=== PATIENT | male | born 1980 | race African-American/Black ===

== ENCOUNTER 2018-08-26 16:14 | Emergency (ER) | payer MEDICAID ==
[~2018-08-26] VITALS: Ht 182.9 cm; Wt 72.0 kg
[2018-08-26 16:23] VITALS: BP 124/71
[2018-08-26] MEDS ORDERED: DIME120C2 PO (16:26)
== END 2018-08-26 21:30 | disposition left against medical advice (07) ==
LOC: ER 16:14
DX: Z53.21 Procedure and treatment not carried out due to patient leaving prior to being seen by health care provider (principal)

== ENCOUNTER 2018-08-28 14:36 | Emergency (ER) | payer MEDICAID ==
[~2018-08-28] VITALS: Ht 182.9 cm; Wt 98.4 kg
[~2018-08-28 14:36] MED LIST: DIME120C2 PO
[2018-08-28 19:11] LABS: BASOPHILS % 0.6 % (0.0-2.0); EOSINOPHILS % 0.8 % (0.0-5.0); HEMOGLOBIN. 16.2 g/dL (14.0-18.0); LYMPHOCYTES % 31.3 % (20.0-50.0); MEAN CORPUSCULAR HEMOGLOBIN 32.2 pg (28.0-32.0); MEAN CORPUSCULAR VOLUME 93.3 fL (80.0-94.0); MEAN PLATELET VOLUME 11.1 fl (7.4-10.4); MONOCYTES % 9.1 % (2.0-8.0); NEUTROPHILS % 58.2 % (40.0-76.0); PLATELET 162 x1000/uL (130-400); RED BLOOD CELL COUNT 5.04 mill/uL (4.7-6.1); RED CELL DISTRIBUTION WIDTH 12.9 % (11.6-14.6)
[2018-08-28 19:12] LABS: CHLORIDE 103 mEq/L (98-107); PROTHROMBIN TIME 10.6 sec (9.6-11.0)
[2018-08-28] MEDS ORDERED: METHYLPREDNISOLONE SOD SUCC 125 MG/2 ML VIAL IV ONE (19:30)
[2018-08-28] MEDS ORDERED: IPRATROPIUM/ALBUTEROL 0.5-3(2.5)MG/3ML NEB INH PRN (22:15)
[2018-08-28] MEDS ORDERED: GUAIFENESIN 200MG/10ML SUGAR FREE UDC PO PRN (22:15)
[2018-08-28] MEDS ORDERED: DIPHENHYDRAMINE 50MG/ML VIAL IV PRN (22:15)
[2018-08-28] MEDS ORDERED: DOCUSATE SODIUM 100MG CAPSULE PO PRN (22:15)
[2018-08-28] MEDS ORDERED: CLONIDINE 0.1MG TABLET PO PRN (22:15)
[2018-08-28] MEDS ORDERED: LORAZEPAM 2MG/ML CPJ IV PRN (22:15)
[2018-08-28] MEDS ORDERED: MAGNESIUM/ALUMINUM HYDROXIDE/SIMETHICONE 30ML UDC PO PRN (22:15)
[2018-08-28] MEDS ORDERED: HYDRALAZINE 20MG/ML VIAL IV PRN (22:15)
[2018-08-28] MEDS ORDERED: ACETAMINOPHEN 325MG TABLET PO PRN (22:15)
[2018-08-28] MEDS ORDERED: ONDANSETRON HCL 4MG/2ML INJ IV PRN (22:15)
[2018-08-28] MEDS ORDERED: METHYLPREDNISOLONE SOD SUCC 125 MG/2 ML VIAL IV SCH (22:15)
[2018-08-28] MEDS ORDERED: HYDROMORPHONE HCL/PF 2MG/ML CPJ IV PRN (23:00)
[2018-08-28] MEDS ORDERED: HYDROCODONE/ACETAMINOPHEN 10/325MG TABLET PO PRN (23:00)
[2018-08-28 23:03] VITALS: BP 114/66
[2018-08-29] MEDS ORDERED: SODIUM CHLORIDE 0.9% INJ 3ML FLUSH IVF SCH (06:00)
[2018-08-29] MEDS ORDERED: NA PHOS,M-B/NA PHOS,DI-BA ENEMA 118ML PR PRN (09:00)
== END 2018-08-28 23:39 | disposition home or self-care (01) ==
LOC: ER 14:36 → CANRESERV 23:30 → ENRESERV 23:30 → ER 23:39 → CANBEDREQ 08-29 23:28
DX: R53.1 Weakness (principal); R26.9 Unspecified abnormalities of gait and mobility; G35 Multiple sclerosis
CPT/HCPCS: 36415; 80053; 85025; 85610; 96374; 99283; J2930

== ENCOUNTER 2020-09-09 13:46 | Emergency (ER) | payer MEDICARE, MEDICAID ==
[~2020-09-09] VITALS: Ht 182.9 cm; Wt 73.0 kg
[2020-09-09 17:09] VITALS: BP 121/76
== END 2020-09-09 15:18 | disposition home or self-care (01) ==
LOC: ER 14:07
DX: G35 Multiple sclerosis (principal)
CPT/HCPCS: 99285

== ENCOUNTER 2024-02-27 12:13 | Inpatient (IN) | payer MEDICARE, MEDICAID ==
[~2024-02-27] VITALS: Ht 182.9 cm; Wt 51.7 kg
[2024-02-27 13:17] LABS: BASOPHILS % 0.4 % (0.0-2.0); HEMOGLOBIN. 7.6 g/dL (14.0-18.0); LYMPHOCYTES % 41.3 % (20.0-50.0); MEAN CORPUSCULAR HGB CONC 31.5 g/dL (31.0-37.0); MEAN CORPUSCULAR VOLUME 82.3 fL (80.0-94.0); MEAN PLATELET VOLUME 7.7 fl (7.4-10.4); MONOCYTES % 7.6 % (2.0-8.0); NEUTROPHILS % 47.7 % (40.0-76.0); PLATELET 398 x1000/uL (130-400); RED BLOOD CELL COUNT 2.92 mill/uL (4.7-6.1); RED CELL DISTRIBUTION WIDTH 17.4 % (11.6-14.6); WHITE BLOOD COUNT 4.2 x1000/uL (4.5-11.0)
[2024-02-27] MEDS: SODIUM CHLORIDE 0.9% 1,000 ML IV ONE (13:22)
[2024-02-27 13:28] LABS: CARBON DIOXIDE 29 mEq/L (21-32); CHLORIDE 106 mEq/L (98-107); POTASSIUM 3.5 mEq/L (3.5-5.1); SODIUM 138 mEq/L (136-145)
[2024-02-27 13:29] LABS: CALCIUM 8.8 mg/dL (8.7-10.4)
[2024-02-27 13:33] LABS: CREATININE 0.3 mg/dL (0.6-1.3); GLUCOSE 77 mg/dL (70-105)
[2024-02-27 13:34] LABS: UREA NITROGEN BLOOD 8 mg/dL (9-23)
[2024-02-27 13:35] LABS: ALANINE AMINOTRANSFERASE < 7 IU/L (10-49); ALBUMIN 3.2 g/dL (3.2-4.8); ASPARTATE AMINOTRANSFERASE 10 IU/L (<34)
[2024-02-27 13:36] LABS: BILIRUBIN TOTAL 0.3 mg/dL (0.1-1.0); PHOSPHORUS 3.1 mg/dL (2.5-4.9); PROTEIN TOTAL 6.5 g/dL (6.0-8.3)
[2024-02-27 13:40] LABS: BILIRUBIN DIRECT < 0.1 mg/dL (<=3.0)
[2024-02-27] MEDS ORDERED: MAGNESIUM/ALUMINUM HYDROXIDE/SIMETHICONE 30ML UDC PO PRN (14:30)
[2024-02-27] MEDS: MULTIVITAMINS,THER W-MINERALS TABLET PO SCH (14:30)
[2024-02-27] MEDS ORDERED: GUAIFENESIN 200MG/10ML SUGAR FREE UDC PO PRN (14:30)
[2024-02-27] MEDS: PANTOPRAZOLE SODIUM 40 MG/VIAL IV SCH (14:30)
[2024-02-27] MEDS ORDERED: CLONIDINE 0.1MG TABLET PO PRN (14:30)
[2024-02-27] MEDS ORDERED: DEXT 5%/LACTATED RINGERS 1,000 ML IV ONE (14:30)
[2024-02-27] MEDS ORDERED: ONDANSETRON HCL 4MG/2ML INJ IV PRN (14:30)
[2024-02-27] MEDS ORDERED: ACETAMINOPHEN 325MG TABLET PO PRN ×2 (14:30)
[2024-02-27] MEDS ORDERED: DOCUSATE SODIUM 100MG CAPSULE PO PRN (14:30)
[2024-02-27] MEDS ORDERED: IPRATROPIUM/ALBUTEROL 0.5-3(2.5)MG/3ML NEB HHN PRN (14:30)
[2024-02-27] MEDS: ENOXAPARIN 40MG/0.4ML SYR SUBCUT SCH (15:00)
[2024-02-27 15:12] LABS: CLARITY URINE CLEAR (CLEAR); COLOR URINE YELLOW (YELLOW); GLUCOSE URINE NEGATIVE (NEGATIVE); KETONES URINE NEGATIVE (NEGATIVE); LEUKOCYTE ESTERASE URINE TRACE (NEGATIVE); NITRITE URINE POSITIVE (NEGATIVE); OCCULT BLOOD URINE NEGATIVE (NEGATIVE); PH URINE 7.5 (4.5-8.0); PROTEIN URINE NEGATIVE (NEGATIVE); SPECIFIC GRAVITY URINE 1.006 (1.005-1.030); UROBILINOGEN URINE 0.2 E.U./dL (0.2-1.0)
[2024-02-27 15:27] LABS: SQUAMOUS EPITHELIAL CELL URINE RARE /lpf (RARE/1+)
[2024-02-27 15:28] LABS: BACTERIA URINE 3+; RBC URINE 0-2 /hpf (0-2); WBC URINE 0-2 /hpf (0-2)
[2024-02-27 15:29] LABS: MUCUS URINE 2+ /lpf (NONE/TRACE)
[2024-02-27 15:40] LABS: *AMPHETAMINES SCREEN URINE NEGATIVE (NEGATIVE); *BARBITURATES SCREEN URINE NEGATIVE (NEGATIVE); *BENZODIAZEPINES SCREEN URINE NEGATIVE (NEGATIVE); *COCAINE SCREEN URINE NEGATIVE (NEGATIVE); CANNABINOID URINE SCREEN NEGATIVE (NEGATIVE); ECSTASY MDMA SCREEN URINE NEGATIVE (NEGATIVE); METHADONE URINE SCREEN NEGATIVE (NEGATIVE); OPIATES URINE SCREEN NEGATIVE (NEGATIVE); PHENCYCLIDINE URINE SCREEN NEGATIVE (NEGATIVE)
[2024-02-27 16:27] LABS: IRON 27 ug/dL (65-175)
[2024-02-27 16:30] LABS: TOTAL IRON BINDING CAPACITY 336 ug/dl (250-425)
[2024-02-27 16:34] LABS: FERRITIN 140 ng/mL (22-322); FOLIC ACID (FOLATE) SERUM 13.58 ng/mL (>5.38)
[2024-02-27 16:35] LABS: VITAMIN B12 SERUM 382 pg/mL (211-911)
[2024-02-27 18:50] VITALS: BP 96/55; PULSE 71; RESP 18; TEMP 36.0288
[2024-02-27 20:00] VITALS: BP 120/71; PULSE 73; RESP 18; TEMP 36.114; O2SAT 97
[2024-02-27] MEDS: THIAMINE HCL 100MG TABLET PO SCH (20:49)
[2024-02-27] MEDS: FERROUS SULFATE 325MG TABLET PO SCH (20:49)
[2024-02-27] MEDS: ZINC SULFATE 220 MG ( 50 ) CAPSULE PO SCH (20:49)
[2024-02-27] MEDS: ASCORBIC ACID 250 MG TABLET PO SCH (20:49)
[2024-02-28] VITALS: BP 98/63; PULSE 96; RESP 18; TEMP 36.44736; O2SAT 100
[2024-02-28 00:46] LABS: CREATINE KINASE 57 IU/L (46-171)
[2024-02-28 00:49] LABS: TROPONIN I HIGH SENSITIVITY < 4 ng/L (3.0-53)
[2024-02-28 04:00] VITALS: BP 98/61; PULSE 99; RESP 18; TEMP 36.3918; O2SAT 99
[2024-02-28 07:33] LABS: CHLORIDE 106 mEq/L (98-107); SODIUM 140 mEq/L (136-145)
[2024-02-28 07:34] LABS: CALCIUM 8.4 mg/dL (8.7-10.4); CARBON DIOXIDE 29 mEq/L (21-32)
[2024-02-28 07:35] LABS: CREATINE KINASE 50 IU/L (46-171)
[2024-02-28 07:36] LABS: TRIGLYCERIDE 30 mg/dL (0-150); TROPONIN I HIGH SENSITIVITY < 4 ng/L (3.0-53)
[2024-02-28 07:39] LABS: GLUCOSE 92 mg/dL (70-105)
[2024-02-28 07:40] LABS: ALBUMIN 3.1 g/dL (3.2-4.8); LDL CHOLESTEROL 44 mg/dL (5-100); T4 FREE 1.18 ng/dL (0.89-1.76); THYROID STIMULATING HORMONE 2.49 uIU/mL (0.55-4.78); UREA NITROGEN BLOOD 18 mg/dL (9-23)
[2024-02-28 07:41] LABS: ALANINE AMINOTRANSFERASE < 7 IU/L (10-49); ASPARTATE AMINOTRANSFERASE 9 IU/L (<34); CHOLESTEROL 91 mg/dL (<200); HDL CHOLESTEROL 40 mg/dL (>55)
[2024-02-28 07:42] LABS: BILIRUBIN TOTAL 0.2 mg/dL (0.1-1.0); PROTEIN TOTAL 6.5 g/dL (6.0-8.3)
[2024-02-28 07:51] LABS: BILIRUBIN DIRECT < 0.1 mg/dL (<=3.0); CREATININE 0.5 mg/dL (0.6-1.3)
[2024-02-28 08:00] VITALS: BP 126/81; PULSE 87; RESP 18; TEMP 36.44736; O2SAT 95
[2024-02-28 08:07] LABS: BASOPHILS % 0.5 % (0.0-2.0); EOSINOPHILS % 3.3 % (0.0-5.0); HEMATOCRIT. 26.7 % (42.0-52.0); HEMOGLOBIN. 8.2 g/dL (14.0-18.0); LYMPHOCYTES % 35.1 % (20.0-50.0); MEAN CORPUSCULAR HEMOGLOBIN 25.8 pg (28.0-32.0); MEAN CORPUSCULAR HGB CONC 30.8 g/dL (31.0-37.0); MEAN CORPUSCULAR VOLUME 83.9 fL (80.0-94.0); MEAN PLATELET VOLUME 8.6 fl (7.4-10.4); NEUTROPHILS % 49.1 % (40.0-76.0); PLATELET 425 x1000/uL (130-400); RED BLOOD CELL COUNT 3.19 mill/uL (4.7-6.1); RED CELL DISTRIBUTION WIDTH 17.3 % (11.6-14.6); WHITE BLOOD COUNT 4.4 x1000/uL (4.5-11.0)
[2024-02-28] MEDS: FOLIC ACID 1MG TABLET PO SCH (08:29)
[2024-02-28 12:00] VITALS: BP 91/56; PULSE 91; RESP 18; TEMP 36.28068; O2SAT 96
[2024-02-28 16:00] VITALS: BP 94/58; PULSE 86; RESP 16; TEMP 36.44736; O2SAT 96
[2024-02-28 20:00] VITALS: BP 87/54; PULSE 91; RESP 18; TEMP 36.50292; O2SAT 99
[2024-02-29] VITALS: BP 85/55; PULSE 65; RESP 18; TEMP 36.22512; O2SAT 100
[2024-02-29 04:00] VITALS: BP 101/57; PULSE 85; RESP 18; TEMP 36.22512
[2024-02-29 07:48] LABS: ALBUMIN 3.4 g/dL (3.2-4.8)
[2024-02-29 07:52] LABS: PREALBUMIN < 5.0 mg/dl (10.0-40.0)
[2024-02-29 08:00] VITALS: BP 100/65; PULSE 79; RESP 20; TEMP 36.114; O2SAT 98
[2024-02-29] MEDS: ENOXAPARIN 30MG/0.3ML SYR SUBCUT SCH (08:34)
[2024-02-29 12:00] VITALS: BP 97/53; PULSE 85; RESP 20; TEMP 36.16956; O2SAT 98
[2024-02-29] MEDS: SERTRALINE HCL 25MG TABLET PO SCH (14:19)
[2024-02-29 16:00] VITALS: BP 90/55; PULSE 81; RESP 19; TEMP 36.16956; O2SAT 97
[2024-02-29 20:00] VITALS: BP 99/56; PULSE 100; RESP 19; TEMP 36.83628; O2SAT 95
[2024-03-01] VITALS: BP 102/62; PULSE 88; RESP 17; TEMP 36.78072; O2SAT 98
[2024-03-01 04:00] VITALS: BP 104/62; PULSE 89; RESP 19; TEMP 36.50292; O2SAT 100
[2024-03-01 06:15] LABS: HEMOGLOBIN 7.7 g/dL (14.0-18.0); MEAN CORPUSCULAR HEMOGLOBIN 25.3 pg (28.0-32.0); MEAN CORPUSCULAR HGB CONC 30.7 g/dL (31.0-37.0); MEAN CORPUSCULAR VOLUME 82.4 fL (80.0-94.0); PLATELET 394 x1000/uL (130-400); RED BLOOD CELL COUNT 3.04 mill/uL (4.7-6.1); RED CELL DISTRIBUTION WIDTH 17.5 % (11.6-14.6); WHITE BLOOD COUNT 5.6 x1000/uL (4.5-11.0)
[2024-03-01 06:18] LABS: CHLORIDE 103 mEq/L (98-107); POTASSIUM 3.9 mEq/L (3.5-5.1); SODIUM 138 mEq/L (136-145)
[2024-03-01 06:19] LABS: CALCIUM 8.7 mg/dL (8.7-10.4); CARBON DIOXIDE 33 mEq/L (21-32)
[2024-03-01 06:24] LABS: CREATININE 0.4 mg/dL (0.6-1.3); GLUCOSE 108 mg/dL (70-105); UREA NITROGEN BLOOD 15 mg/dL (9-23)
[2024-03-01 08:01] VITALS: BP 96/61; PULSE 88; RESP 18; TEMP 36.22512; O2SAT 100
[2024-03-01 11:46] VITALS: BP 102/57; PULSE 85; RESP 16; TEMP 36.78072; O2SAT 100
[2024-03-01 16:00] VITALS: BP 90/56; PULSE 89; RESP 16; TEMP 36.114; O2SAT 100
[2024-03-01 20:00] VITALS: BP 95/64; PULSE 95; RESP 17; TEMP 36.72516; O2SAT 100
[2024-03-02] VITALS (7 sets, daily range): BP systolic 87–101; BP diastolic 50–66; PULSE 78–94; RESP 16–20; TEMP 36.05844–36.83628; O2SAT 99–100
[2024-03-02] MEDS ORDERED: FERR-63 PO (18:38)
[2024-03-02] MEDS ORDERED: TOPUD PO (18:38)
[2024-03-02] MEDS ORDERED: SERT25TA74 PO (18:38)
[2024-03-02] MEDS ORDERED: MULT-622 PO (18:38)
[2024-03-02] MEDS ORDERED: DIME1CAP PO (18:38)
[2024-03-02] MEDS ORDERED: ASCO-494 PO (18:38)
[2024-03-02] MEDS ORDERED: ZINC1CAP2 PO (18:38)
[2024-03-03] VITALS: BP 96/66; PULSE 82; RESP 18; TEMP 37.05852; O2SAT 98
[2024-03-03 04:00] VITALS: BP 99/66; PULSE 79; RESP 20; TEMP 36.6696; O2SAT 98
[2024-03-03 06:58] LABS: CARBON DIOXIDE 33 mEq/L (21-32); CHLORIDE 101 mEq/L (98-107); POTASSIUM 3.7 mEq/L (3.5-5.1); SODIUM 137 mEq/L (136-145)
[2024-03-03 07:00] LABS: CALCIUM 8.8 mg/dL (8.7-10.4)
[2024-03-03 07:03] LABS: CREATININE 0.3 mg/dL (0.6-1.3)
[2024-03-03 07:04] LABS: GLUCOSE 91 mg/dL (70-105); UREA NITROGEN BLOOD 10 mg/dL (9-23)
[2024-03-03 07:35] LABS: BASOPHILS % 0.6 % (0.0-2.0); EOSINOPHILS % 4.5 % (0.0-5.0); HEMATOCRIT. 25.4 % (42.0-52.0); HEMOGLOBIN. 7.9 g/dL (14.0-18.0); LYMPHOCYTES % 32.7 % (20.0-50.0); MEAN CORPUSCULAR HGB CONC 31.3 g/dL (31.0-37.0); MEAN CORPUSCULAR VOLUME 82.9 fL (80.0-94.0); MEAN PLATELET VOLUME 8.5 fl (7.4-10.4); MONOCYTES % 12.3 % (2.0-8.0); NEUTROPHILS % 49.9 % (40.0-76.0); PLATELET 397 x1000/uL (130-400); RED BLOOD CELL COUNT 3.06 mill/uL (4.7-6.1); RED CELL DISTRIBUTION WIDTH 17.5 % (11.6-14.6); WHITE BLOOD COUNT 4.8 x1000/uL (4.5-11.0)
[2024-03-03 08:00] VITALS: BP 110/62; PULSE 86; RESP 19; TEMP 36.22512; O2SAT 97
[2024-03-03 12:00] VITALS: BP 103/72; PULSE 84; RESP 20; TEMP 36.16956; O2SAT 97
[2024-03-03 14:26] LABS: CREATINE KINASE 81 IU/L (46-171)
[2024-03-03 16:00] VITALS: BP 100/55; PULSE 18; PULSE 99; RESP 18; RESP 20; TEMP 36.114; O2SAT 99
[2024-03-03] MEDS ORDERED: VANCOMYCIN 1.25GM PMX (XELLIA) 250 ML IV NR (16:00)
[2024-03-03] MEDS: METHYLPREDNISOLONE SOD SUCC 125MG/2ML (ACT-O-VIAL) IV SCH (18:38)
[2024-03-03] MEDS: CEFTRIAXONE 2GM/50ML 50 ML IV SCH (18:39)
[2024-03-03 20:00] VITALS: BP 99/60; PULSE 101; RESP 19; TEMP 37.7808; O2SAT 100
[2024-03-03] MEDS ORDERED: AZATHIOPRINE 50MG TABLET PO SCH (20:00)
[2024-03-03] MEDS: TRIAMCINOLONE ACETONIDE 0.1% CREAM 15GM TOP SCH (21:16)
[2024-03-03] MEDS: AZATHIOPRINE 50MG TABLET PO SCH (21:16)
[2024-03-03] MEDS ORDERED: BUPROPION HCL 75MG TABLET PO SCH (22:15)
[2024-03-03 22:53] LABS: CREATINE KINASE 71 IU/L (46-171)
[2024-03-03] MEDS: VANCOMYCIN 750MG PMX (XELLIA) 150 ML IV SCH (23:30)
[2024-03-04] VITALS: BP 100/58; PULSE 94; RESP 19; TEMP 36.72516; O2SAT 98
[2024-03-04 04:00] VITALS: BP 95/64; PULSE 90; RESP 19; TEMP 37.28076; O2SAT 98
[2024-03-04] MEDS: BACLOFEN 10MG TABLET PO SCH ×2 (05:11→14:00)
[2024-03-04] MEDS ORDERED: LIDOCAINE HCL 1% 10 MG/ML 10ML VIAL ONE (07:22)
[2024-03-04 08:56] LABS: LACTATE DEHYDROGENASE 107 IU/L (120-246)
[2024-03-04 08:57] LABS: BILIRUBIN TOTAL 0.2 mg/dL (0.1-1.0)
[2024-03-04 08:59] LABS: BILIRUBIN DIRECT < 0.1 mg/dL (<=3.0)
[2024-03-04] MEDS: VANCOMYCIN 1GM PMX (XELLIA) 200 ML IV SCH (10:14)
[2024-03-04] MEDS: SERTRALINE HCL 25MG TABLET PO SCH (10:15)
[2024-03-04 12:00] VITALS: BP 112/67; PULSE 92; RESP 20; TEMP 36.6696; O2SAT 100
[2024-03-04] MEDS ORDERED: DEXTROSE 50% WATER 50ML SYRINGE IV PRN (15:00)
[2024-03-04 16:14] VITALS: BP 102/52; PULSE 90; RESP 18; TEMP 36.05844; O2SAT 100
[2024-03-04] MEDS: BLOOD SUGAR DIAGNOSTIC STRIP TEST SCH (17:20)
[2024-03-04] MEDS: INSULIN LISPRO 100 UNITS/ML SUBCUT SCH (17:50)
[2024-03-04 20:00] VITALS: BP 93/53; PULSE 78; RESP 16; TEMP 36.6696; O2SAT 98
[2024-03-04 20:30] VITALS: BP 96/55
[2024-03-05] VITALS: BP 95/59; PULSE 78; RESP 16; TEMP 36.6696; O2SAT 97
[2024-03-05 04:00] VITALS: BP 98/55; PULSE 65; RESP 16; TEMP 36.78072; O2SAT 98
[2024-03-05 08:00] VITALS: BP 94/44; PULSE 67; RESP 19; TEMP 36.3918; O2SAT 100
[2024-03-05 09:11] LABS: IMMUNOGLOBULIN A 686 mg/dL (90-386); IMMUNOGLOBULIN G 1387 mg/dL (603-1613); IMMUNOGLOBULIN M 72 mg/dL (20-172)
[2024-03-05 11:16] LABS: HEMATOCRIT 25.7 % (42.0-52.0); HEMOGLOBIN 8.1 g/dL (14.0-18.0)
[2024-03-05 11:21] LABS: CHLORIDE 105 mEq/L (98-107); POTASSIUM 3.4 mEq/L (3.5-5.1); SODIUM 140 mEq/L (136-145)
[2024-03-05 11:22] LABS: CALCIUM 8.9 mg/dL (8.7-10.4); CARBON DIOXIDE 30 mEq/L (21-32)
[2024-03-05 11:27] LABS: GLUCOSE 236 mg/dL (70-105); UREA NITROGEN BLOOD 16 mg/dL (9-23)
[2024-03-05 11:50] LABS: CREATININE 0.5 mg/dL (0.6-1.3)
[2024-03-05 12:00] VITALS: BP 93/52; PULSE 68; RESP 19; TEMP 36.72516; O2SAT 93
[2024-03-05 16:00] VITALS: BP 95/55; PULSE 80; RESP 19; TEMP 36.72516; O2SAT 95
[2024-03-05] MEDS: FOLIC ACID 1MG TABLET PO SCH (16:59)
[2024-03-05 20:00] VITALS: BP 99/49; PULSE 88; RESP 19; TEMP 37.503; O2SAT 97
[2024-03-05] MEDS: VANCOMYCIN 750MG PMX (XELLIA) 150 ML IV SCH (21:17)
[2024-03-05] MEDS: BACLOFEN 10MG TABLET PO SCH (21:18)
[2024-03-06] VITALS: BP 93/53; PULSE 77; RESP 18; TEMP 36.83628; O2SAT 100
[2024-03-06 04:00] VITALS: BP 91/43; PULSE 74; RESP 14; TEMP 37.00296; O2SAT 100
[2024-03-06 08:02] LABS: CARBON DIOXIDE 33 mEq/L (21-32); CHLORIDE 104 mEq/L (98-107); POTASSIUM 3.8 mEq/L (3.5-5.1); SODIUM 140 mEq/L (136-145)
[2024-03-06 08:03] LABS: CALCIUM 8.8 mg/dL (8.7-10.4)
[2024-03-06 08:08] LABS: CREATININE 0.4 mg/dL (0.6-1.3); GLUCOSE 117 mg/dL (70-105); UREA NITROGEN BLOOD 17 mg/dL (9-23)
[2024-03-06 08:13] LABS: HEMATOCRIT 25.5 % (42.0-52.0); HEMOGLOBIN 7.7 g/dL (14.0-18.0); MEAN CORPUSCULAR HEMOGLOBIN 25.5 pg (28.0-32.0); MEAN CORPUSCULAR HGB CONC 30.2 g/dL (31.0-37.0); MEAN CORPUSCULAR VOLUME 84.2 fL (80.0-94.0); PLATELET 375 x1000/uL (130-400); RED BLOOD CELL COUNT 3.03 mill/uL (4.7-6.1); RED CELL DISTRIBUTION WIDTH 17.8 % (11.6-14.6); WHITE BLOOD COUNT 8.4 x1000/uL (4.5-11.0)
[2024-03-06 09:06] LABS: ALDOLASE 3.4 U/L (3.3-10.3)
[2024-03-06] MEDS: MIDODRINE HCL 5MG TABLET PO SCH (09:52)
[2024-03-06] MEDS: METHOTREXATE SODIUM 2 . 5MG TABLET PO SCH ×3 (10:07→16:22)
[2024-03-06 12:00] VITALS: BP 93/50; PULSE 95; RESP 16; TEMP 36.44736; O2SAT 100
[2024-03-06 16:00] VITALS: BP 90/52; PULSE 72; RESP 18; TEMP 36.78072; O2SAT 100
[2024-03-06 17:10] LABS: ANTI-MYELOPEROXIDASE AB < 0.2 units (0.0-0.9); ANTI-PROTEINASE 3 ABS < 0.2 units (0.0-0.9)
[2024-03-06 20:00] VITALS: BP 94/60; PULSE 69; RESP 20; TEMP 36.33624; O2SAT 98
[2024-03-07] VITALS (8 sets, daily range): BP systolic 83–96; BP diastolic 42–58; PULSE 63–85; RESP 18–20; TEMP 36.114–36.89184; O2SAT 97–99
[2024-03-07] MEDS ORDERED: AZATHIOPRINE 50MG TABLET PO SCH (09:00)
[2024-03-07 13:07] LABS: ATYPICAL P-ANCA <1:20 titer (Neg:<1:20); CYTOPLASMIC C-ANCA <1:20 titer (Neg:<1:20); PERINUCLEAR P-ANCA <1:20 titer (Neg:<1:20)
[2024-03-07 17:06] LABS: ANA IFA Negative (.)
[2024-03-07] MEDS: VANCOMYCIN 1GM PMX (XELLIA) 200 ML IV SCH (21:00)
== END 2024-03-07 21:21 | DRG 579 ==
LOC: ER 12:13 → 6WST 13:27
PROVIDERS: ADMIT Internal Medicine; ATTEND Internal Medicine
PROC: 0KBP0ZZ Excision of Left Hip Muscle, Open Approach (ICD-10-PCS; principal; 2024-02-29)
PROC: 0QBM0ZZ Excision of Left Tarsal, Open Approach (ICD-10-PCS; 2024-02-29)
PROC: 0KBN0ZZ Excision of Right Hip Muscle, Open Approach (ICD-10-PCS; 2024-02-29)
PROC: 0KBN0ZZ Excision of Right Hip Muscle, Open Approach (ICD-10-PCS; 2024-02-29)
PROC: 0KBP0ZZ Excision of Left Hip Muscle, Open Approach (ICD-10-PCS; 2024-02-29)
PROC: 0KBT0ZZ Excision of Left Lower Leg Muscle, Open Approach (ICD-10-PCS; 2024-02-29)
PROC: 02HV33Z Insertion of Infusion Device into Superior Vena Cava, Percutaneous Approach (ICD-10-PCS; 2024-03-04)
PROC: B548ZZA Ultrasonography of Superior Vena Cava, Guidance (ICD-10-PCS; 2024-03-04)
DX: L89.314 Pressure ulcer of right buttock, stage 4 (principal); G82.50 Quadriplegia, unspecified; M86.8X7 Other osteomyelitis, ankle and foot; E46 Unspecified protein-calorie malnutrition; F02.84 Dementia in other diseases classified elsewhere, unspecified severity, with anxiety; G99.2 Myelopathy in diseases classified elsewhere; F02.83 Dementia in other diseases classified elsewhere, unspecified severity, with mood disturbance; Z68.1 Body mass index [BMI] 19.9 or less, adult; R62.7 Adult failure to thrive; L89.623 Pressure ulcer of left heel, stage 3; L89.154 Pressure ulcer of sacral region, stage 4; L89.324 Pressure ulcer of left buttock, stage 4; L89.894 Pressure ulcer of other site, stage 4; M62.461 Contracture of muscle, right lower leg; L98.0 Pyogenic granuloma; F32.9 Major depressive disorder, single episode, unspecified; G30.9 Alzheimer's disease, unspecified; G35 Multiple sclerosis; K59.00 Constipation, unspecified; L60.0 Ingrowing nail; D64.9 Anemia, unspecified; M62.462 Contracture of muscle, left lower leg; N31.9 Neuromuscular dysfunction of bladder, unspecified; Z74.01 Bed confinement status; Z87.440 Personal history of urinary (tract) infections; M48.02 Spinal stenosis, cervical region; B95.62 Methicillin resistant Staphylococcus aureus infection as the cause of diseases classified elsewhere; G31.9 Degenerative disease of nervous system, unspecified; L30.9 Dermatitis, unspecified; M50.30 Other cervical disc degeneration, unspecified cervical region; Z79.899 Other long term (current) drug therapy; Z82.0 Family history of epilepsy and other diseases of the nervous system; Z88.1 Allergy status to other antibiotic agents
CPT/HCPCS: 36415; 36573; 70551; 72141; 72146; 72148; 73620; 80048; 80061; 80076; 80202; 80305; 81003; 82040; 82085; 82247; 82248; 82550; 82607; 82728; 82746; 82784; 82962; 83036; 83520; 83540; 83550; 83615; 83735; 84100; 84134; 84145; 84439; 84443; 84484; 85014; 85018; 85025; 85027; 85044; 85651; 86235; 86256; 86332; 86334; 86880; 87070; 93970; 97163; 97166; 97530; 99285; C1725; J0696; J1650; J1815; J2470; J2919; J3370; J3490; J7030; J7500; J8610

== ENCOUNTER 2024-06-14 15:16 | Inpatient (IN) | payer MEDICARE, MEDICAID ==
[~2024-06-14] VITALS: Ht 177.8 cm; Wt 65.8 kg
[~2024-06-14 15:16] MED LIST changes: +ASCO-494 PO; -DIME120C2 PO; +DIME1CAP PO; +FERR-63 PO; +MULT-622 PO; +SERT25TA74 PO; +TOPUD PO; +ZINC1CAP2 PO
[2024-06-14 15:22] VITALS: O2SAT 96
[2024-06-14] MEDS: ACETAMINOPHEN 325MG TABLET PO NR (17:46)
[2024-06-14] MEDS: SODIUM CHLORIDE 0.9% 1,000 ML IV ONE (17:52)
[2024-06-14 17:59] LABS: HEMATOCRIT. 35.8 % (42.0-52.0); HEMOGLOBIN. 11.4 g/dL (14.0-18.0); MEAN CORPUSCULAR HEMOGLOBIN 28.8 pg (28.0-32.0); MEAN CORPUSCULAR HGB CONC 31.7 g/dL (31.0-37.0); MEAN CORPUSCULAR VOLUME 90.8 fL (80.0-94.0); MEAN PLATELET VOLUME 9.4 fl (7.4-10.4); PLATELET 202 x1000/uL (130-400); RED BLOOD CELL COUNT 3.95 mill/uL (4.7-6.1); RED CELL DISTRIBUTION WIDTH 17.6 % (11.6-14.6); WHITE BLOOD COUNT 4.7 x1000/uL (4.5-11.0)
[2024-06-14 18:04] LABS: CHLORIDE 98 mEq/L (98-107); DIFFERENTIAL COMMENT 1; POTASSIUM 4.1 mEq/L (3.5-5.1); SODIUM 134 mEq/L (136-145)
[2024-06-14 18:05] LABS: CARBON DIOXIDE 31 mEq/L (21-32)
[2024-06-14 18:06] LABS: CALCIUM 9.2 mg/dL (8.7-10.4)
[2024-06-14 18:08] LABS: INR 1.1; PROTHROMBIN TIME 11.8 sec (9.6-11.0)
[2024-06-14 18:11] LABS: CREATININE 0.5 mg/dL (0.6-1.3); GLUCOSE 97 mg/dL (70-105); UREA NITROGEN BLOOD 10 mg/dL (9-23)
[2024-06-14 18:12] LABS: ALANINE AMINOTRANSFERASE 12 IU/L (10-49); ASPARTATE AMINOTRANSFERASE 17 IU/L (<34)
[2024-06-14 18:13] LABS: ALBUMIN 4.1 g/dL (3.2-4.8); BILIRUBIN DIRECT 0.2 mg/dL (<=3.0); BILIRUBIN TOTAL 0.5 mg/dL (0.1-1.0); PROTEIN TOTAL 6.9 g/dL (6.0-8.3); TROPONIN I HIGH SENSITIVITY < 4 ng/L (3.0-53)
[2024-06-14] MEDS: SODIUM CHLORIDE 0.9% (SEPSIS BOLUS) IV NR (18:28)
[2024-06-14] MEDS: PIPERACILLIN/TAZO 3.375G/50ML 50 ML IV NR (20:10)
[2024-06-14] MEDS: VANCOMYCIN 1G PREMIX 200 ML IV NR (20:30)
[2024-06-14 21:30] LABS: ANISOCYTOSIS 1+; PLATELET ESTIMATE NORMAL
[2024-06-14] MEDS: IOHEXOL-350 100 ML BOTTLE ONE (23:17)
[2024-06-15] MEDS ORDERED: GABA-529 MT (02:18)
[2024-06-15] MEDS ORDERED: INSU100V43 SQ (02:18)
[2024-06-15] MEDS ORDERED: HYDR2SYR (02:18)
[2024-06-15] MEDS ORDERED: METH2.5T PO (02:18)
[2024-06-15] MEDS ORDERED: BACL-141 MT (02:18)
[2024-06-15] MEDS ORDERED: MIDO5TAB4 PO (02:18)
[2024-06-15] MEDS ORDERED: CLON-493 PO (02:18)
[2024-06-15] MEDS ORDERED: PROT40 MT (02:18)
[2024-06-15] MEDS ORDERED: THIA50TA12 MT (02:18)
[2024-06-15 02:21] VITALS: BP 101/56; PULSE 66; RESP 17; TEMP 35.9
[2024-06-15 04:00] VITALS: BP 106/61; PULSE 69; RESP 18; TEMP 35.8; O2SAT 100
[2024-06-15 08:00] VITALS: BP 104/63; PULSE 67; PULSE 76; RESP 18; TEMP 36.2; O2SAT 100
[2024-06-15] MEDS: MIDODRINE HCL 5MG TABLET PO SCH (08:41)
[2024-06-15] MEDS: PANTOPRAZOLE 40MG DR TABLET PO SCH (08:42)
[2024-06-15 12:00] VITALS: BP 100/59; PULSE 87; RESP 19; TEMP 36.4; O2SAT 99
[2024-06-15] MEDS: BACLOFEN 10MG TABLET PO SCH (13:23)
[2024-06-15] MEDS: GABAPENTIN 100MG CAPSULE PO SCH (13:23)
[2024-06-15 16:00] VITALS: BP 98/62; PULSE 84; RESP 19; TEMP 36.3; O2SAT 100
[2024-06-15 20:00] VITALS: BP 116/61; PULSE 80; RESP 20; TEMP 36.7; O2SAT 100
[2024-06-16] VITALS: BP 106/61; PULSE 77; RESP 19; TEMP 36.4; O2SAT 98
[2024-06-16 04:00] VITALS: PULSE 83; RESP 19; TEMP 36.6; O2SAT 98
[2024-06-16 08:00] VITALS: BP 94/52; PULSE 83; RESP 18; TEMP 36.6; O2SAT 93
[2024-06-16] MEDS ORDERED: GADOTERATE MEGLUMINE 5 MMOL/10 ML VIAL IV ONE (11:02)
[2024-06-16 12:00] VITALS: BP 94/54; PULSE 83; RESP 16; TEMP 36.6; O2SAT 92
[2024-06-16 16:00] VITALS: BP 94/53; PULSE 76; RESP 17; TEMP 36.1; O2SAT 99
[2024-06-16 20:00] VITALS: BP 97/55; PULSE 67; RESP 18; TEMP 37.8; O2SAT 98
[2024-06-17] VITALS: BP 104/56; PULSE 73; RESP 17; TEMP 37; O2SAT 98
[2024-06-17 04:00] VITALS: BP 112/45; PULSE 75; RESP 18; TEMP 36.7; O2SAT 99
[2024-06-17 08:00] VITALS: BP 97/61; PULSE 73; RESP 17; TEMP 36.4; O2SAT 96
[2024-06-17 12:00] VITALS: BP 98/55; PULSE 66; RESP 16; TEMP 36.5; O2SAT 97
[2024-06-17 16:00] VITALS: BP 95/62; PULSE 73; RESP 18; TEMP 36.6; O2SAT 99
[2024-06-17 20:00] VITALS: BP 98/57; PULSE 84; RESP 19; TEMP 37.8; O2SAT 99
[2024-06-18] VITALS: BP 90/55; PULSE 79; RESP 18; TEMP 37.1; O2SAT 98
[2024-06-18 04:00] VITALS: BP 90/56; PULSE 79; RESP 18; TEMP 36.6; O2SAT 98
[2024-06-18 08:00] VITALS: BP 95/59; PULSE 70; RESP 18; TEMP 36.7; O2SAT 99
[2024-06-18 08:06] LABS: ALBUMIN 3.6 g/dL (3.2-4.8); PREALBUMIN 6.9 mg/dl (10.0-40.0)
[2024-06-18 12:00] VITALS: BP 95/64; PULSE 74; RESP 16; TEMP 35.7; O2SAT 96
[2024-06-18 16:00] VITALS: BP 95/66; PULSE 75; RESP 16; TEMP 36.2; O2SAT 98
[2024-06-18 20:00] VITALS: BP 98/62; PULSE 89; RESP 19; TEMP 36.8; O2SAT 99
[2024-06-19] VITALS: BP 97/56; PULSE 72; RESP 18; TEMP 36.4; O2SAT 98
[2024-06-19 04:00] VITALS: BP 106/79; PULSE 68; RESP 18; TEMP 36.8; O2SAT 98
[2024-06-19 08:00] VITALS: BP 88/56; PULSE 75; RESP 20; TEMP 36.6; O2SAT 97
[2024-06-19] MEDS: ASCORBIC ACID 500 MG TABLET PO SCH (08:40)
[2024-06-19] MEDS: ZINC SULFATE 220 MG ( 50 ) CAPSULE PO SCH (08:41)
[2024-06-19] MEDS: MULTIVITAMINS,THER W-MINERALS TABLET PO SCH (08:41)
[2024-06-19 12:00] VITALS: BP 105/69; PULSE 69; RESP 18; TEMP 36.3; O2SAT 99
[2024-06-19] MEDS ORDERED: ONDANSETRON HCL 4MG/2ML INJ IV PRN (12:15)
[2024-06-19 16:44] VITALS: BP 99/65; PULSE 74; RESP 19; TEMP 36.5; O2SAT 99
[2024-06-19 20:00] VITALS: BP 93/59; PULSE 64; RESP 18; TEMP 36.5; O2SAT 100
[2024-06-20] VITALS: BP 113/53; PULSE 66; RESP 19; TEMP 36.7; O2SAT 99
[2024-06-20 04:00] VITALS: BP 97/48; PULSE 65; RESP 18; TEMP 36.2; O2SAT 99
[2024-06-20 08:00] VITALS: BP 91/61; PULSE 79; RESP 20; TEMP 36.5; O2SAT 100
[2024-06-20 12:00] VITALS: BP 95/57; PULSE 74; RESP 19; TEMP 36.6; O2SAT 97
[2024-06-20 16:00] VITALS: BP 95/58; PULSE 76; RESP 21; TEMP 36.7; O2SAT 99
[2024-06-20 20:00] VITALS: BP 90/48; PULSE 72; RESP 20; TEMP 36.7; O2SAT 97
[2024-06-21] VITALS: BP 96/58; PULSE 68; RESP 20; TEMP 36.7; O2SAT 97
[2024-06-21 04:00] VITALS: BP 92/54; PULSE 67; RESP 20; TEMP 36.6; O2SAT 97
[2024-06-21 08:00] VITALS: BP 95/59; PULSE 63; RESP 19; TEMP 36.7; O2SAT 99
[2024-06-21 12:00] VITALS: BP 97/59; PULSE 89; RESP 18; TEMP 36.9; O2SAT 98
[2024-06-21] MEDS: ACETAMINOPHEN 325MG TABLET PO PRN (13:15)
[2024-06-21 16:00] VITALS: BP 98/60; PULSE 77; RESP 16; TEMP 36.6; O2SAT 99
[2024-06-21 20:00] VITALS: BP 103/68; PULSE 84; RESP 20; TEMP 36.7; O2SAT 100
== END 2024-06-21 22:28 | DRG 40 ==
LOC: ER 15:16 → EDBEDREQTM 17:58 → EDBEDREQ 17:58 → 7EST 06-15 06:09 → 6WST 06-16 08:04 → 4WST 06-17 18:06 → 6WST 06-17 18:09
PROVIDERS: ADMIT Family Medicine Adult Medicine; ATTEND Family Medicine Adult Medicine
PROC: 0JB70ZZ Excision of Back Subcutaneous Tissue and Fascia, Open Approach (ICD-10-PCS; principal; 2024-06-18)
PROC: 0JB90ZZ Excision of Buttock Subcutaneous Tissue and Fascia, Open Approach (ICD-10-PCS; 2024-06-18)
DX: G35 Multiple sclerosis (principal); L89.114 Pressure ulcer of right upper back, stage 4; L89.314 Pressure ulcer of right buttock, stage 4; L89.894 Pressure ulcer of other site, stage 4; L89.154 Pressure ulcer of sacral region, stage 4; L89.623 Pressure ulcer of left heel, stage 3; L89.324 Pressure ulcer of left buttock, stage 4; E46 Unspecified protein-calorie malnutrition; F32.A Depression, unspecified; I10 Essential (primary) hypertension; E11.9 Type 2 diabetes mellitus without complications; E78.00 Pure hypercholesterolemia, unspecified; M62.461 Contracture of muscle, right lower leg; M62.462 Contracture of muscle, left lower leg; N31.9 Neuromuscular dysfunction of bladder, unspecified; M62.50 Muscle wasting and atrophy, not elsewhere classified, unspecified site; I95.9 Hypotension, unspecified; D64.9 Anemia, unspecified; M48.02 Spinal stenosis, cervical region; Z20.822 Contact with and (suspected) exposure to COVID-19; R20.0 Anesthesia of skin; L97.512 Non-pressure chronic ulcer of other part of right foot with fat layer exposed; S91.311A Laceration without foreign body, right foot, initial encounter; Z74.01 Bed confinement status; Z68.20 Body mass index [BMI] 20.0-20.9, adult; Z79.4 Long term (current) use of insulin; I69.30 Unspecified sequelae of cerebral infarction; X58.XXXA Exposure to other specified factors, initial encounter; Y93.89 Activity, other specified; Y92.89 Other specified places as the place of occurrence of the external cause; Y99.8 Other external cause status
CPT/HCPCS: 36415; 70496; 70498; 70553; 71045; 72156; 80048; 80076; 82040; 83605; 84134; 84145; 84484; 85025; 87426; 87804; 93005; 97166; 99291; A4606; A9577; J2543; J3370; J7030; Q9967